=== PATIENT | female | born 1960 | race Two or more races ===

== ENCOUNTER 2021-08-19 15:43 | Emergency (ER) | payer MEDICAID ==
[~2021-08-19] VITALS: Ht 165.1 cm; Wt 77.0 kg
[2021-08-19 15:47] VITALS: BP 157/79
[2021-08-19 16:58] LABS: BASOPHILS % 0.6 % (0.0-2.0); EOSINOPHILS % 0.8 % (0.0-5.0); HEMATOCRIT. 38.8 % (36.0-48.0); HEMOGLOBIN. 13.3 g/dL (12.0-16.0); LYMPHOCYTES % 29.7 % (20.0-50.0); MEAN CORPUSCULAR VOLUME 90.4 fL (81.0-99.0); MEAN PLATELET VOLUME 9.5 fl (7.4-10.4); MONOCYTES % 4.1 % (2.0-8.0); NEUTROPHILS % 64.8 % (40.0-76.0); PLATELET 236 x1000/uL (130-400); RED BLOOD CELL COUNT 4.29 mill/uL (4.2-5.4); RED CELL DISTRIBUTION WIDTH 13.6 % (11.6-14.6)
[2021-08-19 17:00] LABS: CHLORIDE 106 mEq/L (98-107)
== END 2021-08-19 20:55 | disposition left against medical advice (07) ==
LOC: ER 15:43
DX: R07.89 Other chest pain (principal); E11.9 Type 2 diabetes mellitus without complications; Z88.0 Allergy status to penicillin
CPT/HCPCS: 36415; 71045; 80053; 83880; 84484; 85025; 93005; 99285